=== PATIENT | female | born 1975 | race Caucasian/White ===

== ENCOUNTER 2018-07-15 21:27 | Emergency (ER) | payer MEDICAID ==
[~2018-07-15] VITALS: Ht 154.9 cm; Wt 77.3 kg
[2018-07-15 21:48] VITALS: Ht 154.9 cm; Wt 77.3 kg
[2018-07-15] MEDS ORDERED: VIBRAMYCIN 100100 MG PO (23:14)
[2018-07-15] MEDS ORDERED: MUPIROCIN22 GM TOPICAL (23:14)
[2018-07-15] MEDS ORDERED: MEDROL DOSE PACK4 MG PO (23:14)
[2018-07-15 23:24] VITALS: BP 118/92
== END 2018-07-15 23:24 | disposition home or self-care (01) ==
LOC: D.ER 21:27
DX: L03.113 Cellulitis of right upper limb (principal)